=== PATIENT | female | born 1970 | race African-American/Black ===

== ENCOUNTER 2020-03-12 08:14 | Emergency (ER) | payer BC, OTHER ==
--- OUTSIDE RECORDS SUMMARY | 2020-03-12 08:41 | XMS REPORT | Continuity of Care Document ---
:1970 Author Organization [facility] t Address [address] [place] [address] Care Team Providers Name Role Phone Unavailable Unavailable Unavailable Payers Payer Name Policy Type Policy Number Effective Date Expiration Date S ource Problems This patient has no known problems. Allergies, Adverse Reactions, Alerts Allergy Allergy Status Severity Reaction(s) Onset Inactive Treating Comm ents Source Name Type Date Date Clinician Fish FA Active SV 2020-0 [facility] 03[facility]09 [facility] 00:00: [facility] 00 are [facility] shellfis FA Active SV 2020-0 [facility] h 03-09 [place] derived 00:00: [facility] 00 are [facility] Fish FA Active SV 2020-0 [facility] Containi 02-12 [place] ng 00:00: [facility] Products 00 are [facility] shellfis FA Active SV 2020-0 [facility] h 02-12 [place] derived 00:00: [facility] 00 are [facility] Medications This patient has no known medications. Procedures This patient has no known procedures. Results Test Description Test Time Test Comments Results Result Comments Source CBC W/AUTO DIFF 2020-03-10 05:46:00 Test Item Value Reference Range Interpretation Comme nts WHITE BLOOD CELL (test code = WBC) 5.2 x10 3/uL 4.8-10.8 N RED BLOOD CELL (test code = RBC) 4.35 x10 6/uL 4.20-5.40 N HEMOGLOBIN (test code = HGB) 13.0 g/dL 14.5-20 L HEMATOCRIT (test code = HCT) 41.0 % 37.0-47.0 N MEAN CELL VOLUME (test code = MCV) 94.3 fL 81.0-99.0 N MEAN CELL HGB (test code = MCH) 29.9 pg 27-31 N MEAN CELL HGB CONCENTRATION (test code = MCHC) 31.7 G/DL 33-36.5 L RED CELL DISTRIBUTION WIDTH (test code = RDW) 12.2 % 12.9-16. 9 L PLATELET COUNT (test code = PLT) 190 150-440 N MEAN PLATELET VOLUME (test code = MPV) 10.2 fL 8.9-12.4 N NEUTROPHIL % (test code = NT%) 62.3 % 42.2-75.2 N LYMPHOCYTE % (test code = LY%) 27.7 % 20.5-51.1 N MONOCYTE % (test code = MO%) 9.6 % 1.7-9.3 H EOSINOPHIL % (test code = EO%) 0.0 % 0.0-7.0 N BASOPHIL % (test code = BA%) 0.2 % 0-2.5 N NEUTROPHIL # (test code = NT#) 3.23 x10 3/uL 1.80-7.70 N LYMPHOCYTE # (test code = LY#) 1.44 x10 3/uL 1.00-4.80 N MONOCYTE # (test code = MO#) 0.50 x10 3/uL 0.00-0.80 N EOSINOPHIL # (test code = EO#) 0.00 x10 3/uL 0.00-0.45 N BASOPHIL # (test code = BA#) 0.01 x10 3/uL 0.0-0.20 N Novel Coronavirus 2019 [id number] 01:34:00 Test Item Value Reference Range Interpretation Comments Novel Coronavirus 2019 Inhouse (test Negative Negative code = COVNONPUI) Testing Criteria: Preprocedure ScreeningNovel Coronavirus 2019 Inhouse 2020-02-14 13:17:00 Test Item Value Reference Range Interpretation Comments Novel Coronavirus 2019 Inhouse (test Negative Negative code = COVNONPUI) Testing Criteria: Preprocedure ScreeningPROTHROMBIN [id number] 18:08:00 Test Item Value Reference Range Interpretation Comments PROTHROMBIN TIME 11.6 SECONDS 10.3-12.9 N PATIENT (test code = PTP) INTERNATIONAL 1.03 INR UNIT 0.9-1.11 N The INR is us eful only NORMAL RATIO (test for monit oring code = INR) anticoagulant therapy.It may be unreliable in t he initial phase o f antigoagulation and in unstable patien ts. Indication for Anticoagulation Recommend ed INR 1. Prevention o f venous thomboembolism 2.0-3.0in high -risk patients; treat ment of venousthrombosi s and pulmonary embol ism aftera course o f heparin; preven tion of systemicembolis m in a variety of cond itions, including atria l fibrillation an d prothetic tissu e heart valves, 2. Pros thetic mechanical hear t valves; 2.5-3.5recurren t systemic emboli sm. THROMBOPLASTIN TIME [id number] 18:08:00 Test Item Value Reference Range Interpretation Comments THROMBOPLASTIN TIME 33.5 SECONDS 26.0-35.9 N INTERPRE TATIVE PARTIAL (test code = : erapeutic PTT) range: Unfractionated heparin:47 - 71 seconds Argatroban:1.5 to 3 times the basel ine PTT CBC W/AUTO [id number] 18:07:00 Test Item Value Reference Range Interpretation Comments WHITE BLOOD CELL (test code = 5.6 x10 3/uL 4.8-10.8 N WBC) RED BLOOD CELL (test code = 4.05 x10 6/uL 4.20-5.40 L RBC) HEMOGLOBIN (test code = HGB) 12.3 g/dL 14.5-20 L HEMATOCRIT (test code = HCT) 38.2 % 37.0-47.0 N MEAN CELL VOLUME (test code = 94.3 fL 81.0-99.0 N MCV) MEAN CELL HGB (test code = MCH) 30.4 pg 27-31 N MEAN CELL HGB CONCENTRATION 32.2 G/DL 33-36.5 L (test code = MCHC) RED CELL DISTRIBUTION WIDTH 12.4 % 12.9-16.9 L (test code = RDW) PLATELET COUNT (test code = 246 150-440 N PLT) MEAN PLATELET VOLUME (test code 11.1 fL 8.9-12.4 N = MPV) NEUTROPHIL % (test code = NT%) 37.9 % 42.2-75.2 L LYMPHOCYTE % (test code = LY%) 46.8 % 20.5-51.1 N MONOCYTE % (test code = MO%) 12.4 % 1.7-9.3 H EOSINOPHIL % (test code = EO%) 2.2 % 0.0-7.0 N BASOPHIL % (test code = BA%) 0.5 % 0-2.5 N NEUTROPHIL # (test code = NT#) 2.10 x10 3/uL 1.80-7.70 N LYMPHOCYTE # (test code = LY#) 2.60 x10 3/uL 1.00-4.80 N MONOCYTE # (test code = MO#) 0.69 x10 3/uL 0.00-0.80 N EOSINOPHIL # (test code = EO#) 0.12 x10 3/uL 0.00-0.45 N BASOPHIL # (test code = BA#) 0.03 x10 3/uL 0.0-0.20 N COMPREHENSIVE METABOLIC [id number] 18:05:00 Test Item Value Reference Range Interpretation Comments SODIUM (test code = 141 MMOL/L 136-143 N NA) POTASSIUM (test 4.4 MMOL/L 3.5-5.1 N code = K) CHLORIDE (test code 104 MMOL/L 98-107 N = CL) CARBON DIOXIDE 28 mmol/L 24-31 N (test code = CO2) GLUCOSE (test code 87 mg/dL 70-104 N = GLU) BLOOD UREA NITROGEN 11.5 MG/DL 7.0-21.0 N (test code = BUN) GLOMERULAR >=60 max >60 The estimated FILTRATION RATE estimate glomerular (test code = GFR) filtration rate is computed usingpatient ra ce, age (>18), sex, and serum creatinin e. If anyof the ne eded data elements a re missing the Laboratory otto ot compute an estimation of t he glomerular filtration rate . CREATININE (test 0.8 mg/dL 0.8-1.5 N code = CREAT) TOTAL PROTEIN (test 8.2 g/dL 6.3-8.3 N code = PROT) ALBUMIN (test code 4.2 G/DL 3.5-5.0 N = ALB) CALCIUM (test code 9.9 mg/dL 8.8-10.2 N = CA) BILIRUBIN TOTAL 0.4 mg/dL 0.2-1.0 N (test code = BILT) SGOT/AST (test code 20 IU/L 10-34 N = AST) SGPT/ALT (test code 18 U/L 10-36 N = ALT) ALKALINE 60 U/L 32-104 N PHOSPHATASE (test code = ALKP) - XR CHEST 1 [id number] 17:34:00Patient Name: BRIAN RAYGOZA Unit No: [id number] EXAMS: CPT CODE: [id number] XR CHEST 1 V [id number] Location code: H5 Chest 1 view Indication: PRE OP. Comparison: None Findings: The heart and mediastinum are not remarkable. Costophrenic angles are clear. Lungs are clear.Bone is unremarkable for age. Impression: 1. No radiographic evidence of acute cardiopulmonary disease. Electronically Signedby HORACE JI M.D. on 02/13/2020 at 1732 Reported and signed by: HORACE JI M.D. CC: Citlali Azar MD Technologist: Manuela Orozco Time: DAP (Gy m2): Air Kerma (mGy): Trscr Dt/Tm: 02/13/2020 (1732) by:Geoff Printed Date/Time: 02/13/2020 ([id number]) Name: BRIAN RAYGOZA [facility] Phys: Renea Holt [address] : 1970 Age: 49 Sex: [place] [address] Loc: P.SRG Exam Date: 02/13/2020 Status: PRE SDC PH: FAX: PAGE 1 Signed Report
[2020-03-12] MEDS ORDERED: MORPHINE 2 MG/ML SYR ONE (09:01)
[2020-03-12] MEDS ORDERED: ONDANSETRON 4 MG/2 ML VIAL ONE ×2 (09:01→12:17)
--- NOTE | 2020-03-12 09:35 | RAD REPORT ---
EXAM DESCRIPTION: CT - Abdomen Pelvis W Contrast - 03/12/2020 9:17 am CLINICAL HISTORY: Abdominal pain COMPARISON: none. TECHNIQUE: Computed axial tomography of the abdomen pelvis was obtained. 100 cc Isovue-300 was admin istered intravenously. Oral contrast was not requested which limits evaluation of bowel. All CT scans are performed using dose optimization technique as appropriate and may include automated exposure control or mA/KV adjustment according to patient size. FINDINGS: The liver, spleen, pancreas, adrenal and kidneys appear unremarkable. There is no evidence of diverticulitis. Normal appendix [id number] ground-glass opacities within the lower lobes of the lungs. Small umbilical hernia Patient is status post recent hysterectomy. 3.6 x 3 centimeter fluid collection is present within the cul-de-sac. IMPRESSION: Mild to moderate ground-glass opacities within the lower lobes of the lungs may indicate a viral pneumonia or pneumonitis 3.6 x 3 centimeter fluid collection within the cul-de-sac may represent a small hematoma or early abs cess
[2020-03-12 09:55] LABS: Absolute Lymphocytes (CBC) 0.9 K/uL (0.7-4.9); Basophils % 0.4 % (0-1.3); Hematocrit 35.3 % (36.0-45.0); Lymphocytes % 20.5 % (15.3-44.8); MPV 9.4 fL (7.6-11.3); RBC Red Blood Cell Count 3.88 M/uL (3.86-4.86)
[2020-03-12 10:15] LABS: Albumin 2.8 g/dL (3.4-5.0); Bilirubin Direct 0.2 mg/dL (0-0.2); Bilirubin Total 0.7 mg/dL (0.2-1.0); Potassium 3.3 mmol/L (3.5-5.1)
--- NOTE | 2020-03-12 11:46 | EDPHYS ---
Physician Documentation [facility] Name: Randy Bryan Age: 49 yrs Sex: Female : 1970 Arrival Date: 03/12/2020 Time: 08:20 Bed 2 Private MD: ED Physician Wesley Loredo HPI: 03/12 08:30 This 49 yrs old Black Female presents to ER via EMS with complaints of General Weakness.kdr 08:30 The patient had a laproscopic hysterectomy on Monday at [facility]. She was up to the [facility] bathroom this morning and began to get light head and dizzy. She felt hot and called for her . The next thing she knows is that he is calling for EMS. EMS reports that their initial BP was \R\70 systolic and that after a fluid bolus, she improved. On initial presentation, BP good (138) and HR 80. She reports mild low abdominal pain. She denies any vaginal bleeding. She has no other complaints or concerns at this time. Severity of symptoms: At their worst the symptoms were severe incapacitating in the emergency department the symptoms have improved moderately. The patient has not experienced similar symptoms in the past. The patient has been recently seen by a physician: an access spec specialist. 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 - Social history:: Smoking status: Patient denies any tobacco usage or history of. ROS: 08:30 Constitutional: Negative for fever, chills, and weight loss, Eyes: Negative for injury, kdr pain, redness, and discharge, ENT: Negative for injury, pain, and discharge, Neck: Negative for injury, pain, and swelling, Cardiovascular: Negative for chest pain, palpitations, and edema, Respiratory: Negative for shortness of breath, cough, wheezing, and pleuritic chest pain, Back: Negative for injury and pain, : Negative for injury, bleeding, discharge, and swelling, MS/Extremity: Negative for injury and deformity, Skin: Negative for injury, rash, and discoloration, Neuro: Negative for headache, weakness, numbness, tingling, and seizure activity. Psych: Negative for depression, anxiety, suicide ideation, homicidal ideation, and hallucinations, Allergy/Immunology: Negative for hives, rash, and allergies, Endocrine: Negative for neck swelling, polydipsia, polyuria, polyphagia, and marked weight changes, Hematologic/Lymphatic: Negative for swollen nodes, abnormal bleeding, and unusual bruising. 08:30 Abdomen/GI: Positive for abdominal pain, Negative for nausea, vomiting, and diarrhea, abdominal distension, anorexia, dysphagia, hematemesis, black/tarry stool, rectal pain, rectal bleeding, bowel incontinence. Exam: 08:30 Constitutional: This is a well developed, well nourished patient who is awake, alert, kdr and in no acute distress. Head/Face: Normocephalic, atraumatic. Eyes: Pupils equal round and reactive to light, extra-ocular motions intact. Lids and lashes normal. Conjunctiva and sclera are non-icteric and not injected. Cornea within normal limits. Periorbital areas with no swelling, redness, or edema. Neck: Trachea midline, no thyromegaly or masses palpated, and no cervical lymphadenopathy. Supple, full range of motion without nuchal rigidity, or vertebral point tenderness. No Meningismus. Chest/axilla: Normal chest wall appearance and motion. Nontender with no deformity. No lesions are appreciated. Cardiovascular: Regular rate and rhythm with a normal S1 and S2. No gallops, murmurs, or rubs. Normal PMI, no JVD. No pulse deficits. Respiratory: Lungs have equal breath sounds bilaterally, clear to auscultation and percussion. No rales, rhonchi or wheezes noted. No increased work of breathing, no retractions or nasal flaring. Back: No spinal tenderness. No costovertebral tenderness. Full range of motion. Skin: Warm, dry with normal turgor. Normal color with no rashes, no lesions, and no evidence of cellulitis. MS/ Extremity: Pulses equal, no cyanosis. Neurovascular intact. Full, normal range of motion. Neuro: Awake and alert, GCS 15, oriented to person, place, time, and situation. Cranial nerves II-XII grossly intact. Motor strength 5/5 in all extremities. Sensory grossly intact. Cerebellar exam normal. Normal gait. Psych: Awake, alert, with orientation to person, place and time. Behavior, mood, and affect are within normal limits. 08:30 Abdomen/GI: Inspection: abdomen appears normal, obese Bowel sounds: diminished, in all quadrants, Palpation: soft, mild abdominal tenderness, in the suprapubic area, right lower quadrant and left lower quadrant, mass, is not appreciated, rebound tenderness, is not appreciated, voluntary guarding, is not appreciated, involuntary guarding, is not appreciated, tenderness to percussion, is appreciated in the suprapubic area, right lower quadrant and left lower quadrant. 08:38 ECG was reviewed by the Attending Physician. kdr Vital Signs: 08:21 BP 138 / 78; Pulse 79; Resp 18; Temp 98.0; Pulse Ox 99% on R/A; rr5 09:48 BP 133 / 77; Pulse 81; Resp 14; Pulse Ox 98% ; sv 10:45 BP 117 / 92; Pulse 74; Resp 16; Pulse Ox 96% on R/A; ph 12:00 BP 127 / 86; Pulse 76; Resp 18; Temp 97.9; Pulse Ox 98% on R/A; ph MDM: 11:45 Patient medically screened. kdr 12:26 Data reviewed: vital signs, nurses notes, lab test result(s), EKG, radiologic studies. kdr Counseling: I had a detailed discussion with the patient and/or guardian regarding: the historical points, exam findings, and any diagnostic results supporting the discharge/admit diagnosis, lab results, radiology results, the need for outpatient follow up. Physician consultation: дмитрий Guerra regarding consult, patient's condition, outpatient follow-up, and will see patient in office, No later than next Monday. 03/12 09:27 Order name: CREATININE WHOLE BLOOD; Complete Time: 09:29 EDMS 03/12 08:30 Order name: CT Abd/Pelvis - IV Contrast Only kdr 03/12 09:57 Order name: CBC with Automated Diff; Complete Time: 11:04 EDMS 03/12 10:15 Order name: Basic Metabolic Panel; Complete Time: 11: EDNE 03/12 10:15 Order name: Liver (Hepatic) Function; Complete Time: 11:04 EDMS 03/12 10:15 Order name: Lipase; Complete Time: 11:04 EDMS 03/12 10:42 Order name: ABO/RH no charge; Complete Time: 11:04 EDMS 03/12 10:56 Order name: Type and Screen; Complete Time: 11:04 EDMS 03/12 08:30 Order name: IV Saline Lock; Complete Time: 08:34 kdr 03/12 08:30 Order name: Labs collected and sent; Complete Time: 09:13 kdr 03/12 09:19 Order name: Labs - recollect needed: recollect all tubes including T\T\S/ hemolized; eb Complete Time: 10:24 03/12 09:36 Order name: CT; Complete Time: 09:38 EDMS EC:38 Rate is 75 beats/min. Rhythm is regular, Normal Sinus Rhythm with No ectopy. QRS [place] kdr is Normal. ME interval is normal. QRS interval is normal. QT interval is normal. Clinical impression: Normal ECG. Administered Medications: 09:05 Drug: Zofran (Ondansetron) 4 mg Route: IVP; Site: left antecubital; ph 09:30 Follow up: Response: No adverse reaction ph 09:06 Drug: morphine 2 mg Route: IVP; Site: left antecubital; ph 09:30 Follow up: Response: No adverse reaction; Pain is decreased ph 12:15 Drug: Rocephin - (cefTRIAXone) 1 grams Route: IVPB; Infused Over: 30 mins; Site: left ph antecubital; 12:35 Follow up: Response: No adverse reaction; IV Status: Completed infusion ph 12:18 Drug: Zofran (Ondansetron) 4 mg Route: IVP; Site: left antecubital; ph 12:35 Follow up: Response: No adverse reaction ph 12:24 Drug: Decadron - Dexamethasone 10 mg Route: IVP; Site: left antecubital; ph 12:35 Follow up: Response: No adverse reaction ph 12:26 Drug: Zithromax 500 mg Route: PO; ph 12:35 Follow up: Response: No adverse reaction ph Disposition: 03/12/20 11:45 Discharged to Home. Impression: Syncope and collapse, Abdominal and pelvic pain, Pneumonia, unspecified organism - viral. - Condition is Stable. - Discharge Instructions: Abdominal Pain, Adult, Nxrd-[id number], Syncope, Elkz-qf-Zjum, Community-Acquired Pneumonia, Adult, Dffi-[id number], Vasovagal Syncope, Adult, COVID-19. - Prescriptions for Zithromax Z- Bernardo 250 mg Oral Tablet - take 1 tablet by ORAL route once daily for 4 days; 4 tablet. - Medication Reconciliation Form, Thank You Letter form. - Follow up: Private Physician; When: 5 - 6 days; Reason: If symptoms return, Further diagnostic work-up, Recheck today's complaints, Continuance of care, Re-evaluation by your physician. - Problem is new. - Symptoms have improved. Addendum: 03/14/2020 09:45 Addendum: Pt contacted at 0945 to notify of positive COVID-19 test results, feeling r n better, questions answered, told health department will be contacting for further instructions and documentation. . Signatures: Dispatcher [employer] EDMS Wesley Loredo MD MD kdr Nieto, Roman, MD MD rn Hall, Patricia, RN RN Renate Jeffries Raymond RN RN rr5 Corrections: (The following items were deleted from the chart) 03/12 12:43 11:45 03/12/2020 11:45 Discharged to Home. Impression: Syncope and collapse; Abdominal ph and pelvic pain; Pneumonia, unspecified organism - viral. Condition is Stable. Forms are Medication Reconciliation Form, Thank You Letter, Antibiotic Education, Prescription Opioid Use. Follow up: Private Physician; When: 5 - 6 days; Reason: If symptoms return, Further diagnostic work-up, Recheck today's complaints, Continuance of care, Re-evaluation by your physician. Problem is new. Symptoms have improved. kdr
--- NOTE | 2020-03-12 11:46 | ER ---
Nurse's Notes [facility] Name: Randy Bryan Age: 49 yrs Sex: Female : 1970 Arrival Date: 03/12/2020 Time: 08:20 Bed 2 Private MD: Diagnosis: Syncope and collapse;Abdominal and pelvic pain;Pneumonia, unspecified organism-viral Presentation: 03/12 08:21 Chief complaint: EMS states: Pt had hysterectomy on Monday, this morning felt very weak rr5 and lightheaded, had possible syncopal episode witnessed by , initial BP 103/75, dropped to 63/24, IV established and approx 750 mL NS given, BP WNL upon arrival to ED, pt takes multiple medications for HTN but did not take this morning. Coronavirus screen: Proceed with normal triage. Patient denies a cough. Patient denies shortness of breath or difficulty breathing. Patient denies measured and/or subjective temperature greater than 100.4F prior to today's visit. Patient denies travel on a cruise ship or to a country the [facility] currently lists as an affected area. Patient denies contact with known and/or suspected case of COVID-19. Ebola Screen: No symptoms or risks identified at this time. Initial Sepsis Screen: Does the patient meet any 2 criteria? Yes Does the patient have a suspected source of infection? No. Patient's initial sepsis screen is negative. Risk Assessment: Do you want to hurt yourself or someone else? Patient reports no desire to harm self or others. Onset of symptoms was March 12, 2020. 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 - Social history:: Smoking status: Patient denies any tobacco usage or history of. Screenin:31 Abuse screen: Denies threats or abuse. Denies injuries from another. Nutritional rr5 screening: No deficits noted. Tuberculosis screening: No symptoms or risk factors identified. Fall Risk None identified. Assessment: 08:31 General: Appears in no apparent distress. comfortable, obese, well groomed, Behavior is rr5 calm, cooperative, appropriate for age, Denies fever, feeling ill. Pain: Complains of pain in suprapubic area, right lower quadrant and left lower quadrant. Neuro: Level of Consciousness is awake, alert, obeys commands, Oriented to person, place, time, situation, Reports a syncopal episode weakness. Cardiovascular: Capillary refill < 3 seconds in bilateral fingers Patient's skin is warm and dry. Respiratory: Airway is patent Respiratory effort is even, unlabored, Respiratory pattern is regular, symmetrical. GI: Abdomen is non-distended, obese, Reports lower abdominal pain, nausea, Patient currently denies diarrhea, vomiting, surgical site present x 2 w/ band aids in place, recent hysterectomy. : Denies vaginal bleeding. Derm: Skin is healthy with good turgor, Skin is pink, warm \T\ dry. Musculoskeletal: Circulation, motion, and sensation intact. Range of motion: intact in all extremities. 09:07 Reassessment: Pt taken to CT via stretcher. ph 09:48 Reassessment: Ok by Dr Loredo for pt to have ice chips and a little bit of water. sv 10:43 Reassessment: Patient appears in no apparent distress at this time. Patient and/or ph family updated on plan of care and expected duration. Pain level reassessed. Patient is alert, oriented x 3, equal unlabored respirations, skin warm/dry/pink. 12:20 Reassessment: Patient appears in no apparent distress at this time. Patient and/or ph family updated on plan of care and expected duration. Pain level reassessed. Patient is alert, oriented x 3, equal unlabored respirations, skin warm/dry/pink. D/C pending ride home, spoke to pt's who is on the way. Vital Signs: 08:21 BP 138 / 78; Pulse 79; Resp 18; Temp 98.0; Pulse Ox 99% on R/A; rr5 09:48 BP 133 / 77; Pulse 81; Resp 14; Pulse Ox 98% ; sv 10:45 BP 117 / 92; Pulse 74; Resp 16; Pulse Ox 96% on R/A; ph 12:00 BP 127 / 86; Pulse 76; Resp 18; Temp 97.9; Pulse Ox 98% on R/A; ph ED Course: 08:20 Patient arrived in ED. rr5 08:25 Triage completed. rr5 08:29 Wesley Loredo MD is Attending Physician. kdr 08:31 Patient has correct armband on for positive identification. Bed in low position. Call rr5 light in reach. Side rails up X2. cardiac monitor on. Pulse ox on. NIBP on. Door closed. Noise minimized. Warm blanket given. 08:31 Arm band placed on Patient placed in an exam room, on a stretcher, on surveillance system monitor, rr5 on pulse oximetry. 08:35 Marta Clements, RN is Primary Nurse. ph 10:01 called [phone] Citlali Lira 's Nurse with Dr. lindsay Loredo for patient consultation. 10:33 Covid-19 swabbed and sent to lab. ca1 12:43 No provider procedures requiring assistance completed. IV discontinued, intact, ph bleeding controlled, No redness/swelling at site. Pressure dressing applied. 14:21 Health Dept notified/ PUI # [id number]/ Mary in lab notified. eb Administered Medications: 09:05 Drug: Zofran (Ondansetron) 4 mg Route: IVP; Site: left antecubital; ph 09:30 Follow up: Response: No adverse reaction ph 09:06 Drug: morphine 2 mg Route: IVP; Site: left antecubital; ph 09:30 Follow up: Response: No adverse reaction; Pain is decreased ph 12:15 Drug: Rocephin - (cefTRIAXone) 1 grams Route: IVPB; Infused Over: 30 mins; Site: left ph antecubital; 12:35 Follow up: Response: No adverse reaction; IV Status: Completed infusion ph 12:18 Drug: Zofran (Ondansetron) 4 mg Route: IVP; Site: left antecubital; ph 12:35 Follow up: Response: No adverse reaction ph 12:24 Drug: Decadron - Dexamethasone 10 mg Route: IVP; Site: left antecubital; ph 12:35 Follow up: Response: No adverse reaction ph 12:26 Drug: Zithromax 500 mg Route: PO; ph 12:35 Follow up: Response: No adverse reaction ph Outcome: 11:45 Discharge ordered by . kdr 12:43 Patient left the ED. ph 12:43 Discharged to home via wheelchair, with family. ph 12:43 Condition: good 12:43 Discharge instructions given to patient, Instructed on discharge instructions, follow up and referral plans. medication usage, Demonstrated understanding of instructions, follow-up care, medications, Prescriptions given X 1. Signatures: Isha Rodgers RN RN Wesley Russell MD MD kdr Hall, Patricia, RN RN Renate Jeffries Raymond RN RN rr5 AcobShraddha RN RN ca1
[2020-03-12] MEDS ORDERED: dexAMETHasone 10 MG/ML VIAL ONE (11:55)
[2020-03-12] MEDS ORDERED: CEFTRIAXONE/SWI 1gm 1 GM/10 ML SYR ONE (11:55)
[2020-03-12] MEDS ORDERED: AZITHROMYCIN 250 MG TAB ONE (12:08)
[2020-03-12 13:07] VITALS: TEMP 98
[2020-03-12 13:26] VITALS: BP 117/92; O2SAT 96
== END 2020-03-12 12:43 | disposition home or self-care (01) ==
LOC: ER 08:14
DX: U07.1 COVID-19 (principal); J12.89 Other viral pneumonia; I10 Essential (primary) hypertension; Z90.710 Acquired absence of both cervix and uterus
CPT/HCPCS: 96365; 93005; 85025; 80048; 36415; 86900; 86850; 82565; 86901; 80076; 83690; 74177; 96375; 99284; U0001; Q9967; J1100; J2270; J0696; J2405 ×2